=== PATIENT | male | born 1990 | race Caucasian/White ===

== ENCOUNTER → 2017-07-06 | Outpatient (CLI) | payer OTHER ==
--- NOTE | 2017-07-06 16:50 | RAD ---
EXAM DESCRIPTION: Lumbar Spine 3 Views CLINICAL HISTORY: S33.5XXA, M51.27 COMPARISON: None Available. TECHNIQUE: Three views lumbar spine FINDINGS: Normal alignment of the spine is present with preservation of vertebral and disc height. SI joints are normal. Mild facet sclerosis at L4-5 and L5-S1 is noted. No destructive changes or compression deformities evident. IMPRESSION: Essentially normal lumbar spine three views with mild facet sclerotic degenerative changes. Electronically signed by: Mikhail Paniagua MD 07/06/2017 4:48 PM [facility]
== END | disposition home or self-care (01) ==
LOC: RAD 14:25
PROVIDERS: ATTEND Chiropractor
DX: S33.5XXA Sprain of ligaments of lumbar spine, initial encounter (principal); M51.27 Other intervertebral disc displacement, lumbosacral region